=== PATIENT | male | born 1990 | race Two or more races ===

== ENCOUNTER 2023-02-16 01:42 | Emergency (ER) | payer SELFPAY ==
[2023-02-16] MEDS ORDERED: Sodium Chloride 0.9% 2.5 ML Syringe FLUSH PRN (01:45)
[2023-02-16 01:59] LABS: BASE EXCESS VENOUS -2.1 (-2.0-3.0); PH,VENOUS 7.33 (7.31-7.41)
[2023-02-16 02:00] LABS: BASOPHILS PERCENT AUTO 0.4 % (0.0-1.5); EOSINOPHILS ABSOLUTE AUTO 0.1 K/uL (0.0-0.7); HEMATOCRIT 43.6 % (38.0-50.0); LYMPHOCYTES ABSOLUTE AUTO 3.9 K/uL (0.6-2.4); LYMPHOCYTES PERCENT AUTO 40.9 % (16.0-40.0); MEAN CORPUSCULAR HEMOGLOBIN 30.4 pg (27.0-32.0); MEAN CORPUSCULAR HGB CONC 34.4 g/dL (31.0-37.0); MEAN CORPUSCULAR VOLUME 88.3 fL (80.0-98.0); MONOCYTES ABSOLUTE AUTO 0.6 K/uL (0.0-0.8); MONOCYTES PERCENT AUTO 6.7 % (0.0-15.0); NEUTROPHILS ABSOLUTE AUTO 4.9 K/uL (1.4-5.7); NRBC ABSOLUTE 0 K/uL; PLATELET COUNT,PLT 411 K/uL (150-400); RED BLOOD CELL COUNT 4.94 M/uL (4.50-5.90); WHITE BLOOD CELL COUNT,WBC 9.54 K/uL (4.0-11.0)
[2023-02-16 02:07] LABS: APPEARANCE,URINE CLEAR; BILIRUBIN,URINE NEGATIVE (NEGATIVE); COLOR,URINE YELLOW; GLUCOSE,URINE NEGATIVE (NEGATIVE); KETONES,URINE NEGATIVE (NEGATIVE); LEUKOCYTE ESTERASE,URINE NEGATIVE (NEGATIVE); NITRITE,URINE NEGATIVE (NEGATIVE); OCCULT BLOOD,URINE NEGATIVE (NEGATIVE); PH,URINE 5.5 (5.0-8.0); PROTEIN,URINE NEGATIVE (NEGATIVE); UROBILINOGEN,URINE 0.2 EU/dL (<2.0)
[2023-02-16 02:17] LABS: AMPHETAMINES SCREEN, URINE NEGATIVE (CUTOFF=500); BARBITURATE SCREEN,URINE NEGATIVE (CUTOFF=200); BENZODIAZEPINES SCREEN,URINE NEGATIVE (CUTOFF=150); BUPRENORPHINE SCREEN,URINE NEGATIVE (CUTOFF=10); METHADONE SCREEN, URINE NEGATIVE (CUTOFF=200); METHAMPHETAMINES SCREEN, URINE NEGATIVE (CUTOFF=500); OXYCODONE SCREEN,URINE NEGATIVE (CUT0FF=100); PCP SCREEN,URINE NEGATIVE (CUTOFF=25); PROPOXYPHENE SCREEN,URINE NEGATIVE (CUTOFF=300); THC SCREEN,URINE 20 NG/ML NEGATIVE (CUTOFF=50)
[2023-02-16] MEDS ORDERED: Ketamine 500 mg/10 ML MDV ONE (02:22)
[2023-02-16] MEDS ORDERED: fentaNYL 100 MCG/2 ML SDV ONE (02:25)
[2023-02-16] MEDS ORDERED: propofoL 100 ML ONE ×2 (02:25→05:38)
[2023-02-16] MEDS ORDERED: Rocuronium 100 MG/10 ML MDV IV ONE (02:34)
[2023-02-16 02:35] LABS: ACETAMINOPHEN <2.0 ug/mL; ALANINE AMINOTRANSFERASE,ALT 71 IU/L (14-63); ALBUMIN 3.9 g/dL (3.4-5.0); ALKALINE PHOSPHATASE 108 U/L (46-116); ASPARTATE AMNIOTRANSFERASE,AST 36 IU/L (15-37); BILIRUBIN TOTAL 0.2 mg/dL (0.2-1.0); BLOOD UREA NITROGEN,BUN 15 mg/dL (7.0-18.0); CARBON DIOXIDE,CO2 25.6 mmol/L (21.0-32.0); CHLORIDE,CL 105 mmol/L (98-107); CREATININE 0.9 mg/dL (0.8-1.3); ESTIMATED GFR 117 mL/min (>60); ETHANOL BLOOD MEDICAL 197 mg/dL; GLUCOSE RANDOM 115 mg/dL (74-106); MAGNESIUM 2.2 mg/dL (1.8-2.4); PHOSPHORUS 3.8 mg/dL (2.6-4.7); POTASSIUM,K 3.6 mmol/L (3.5-5.1); PROTEIN TOTAL,TP 7.7 g/dL (6.4-8.2); SALICYLATE 2.5 mg/dL (0.0-20.0); SODIUM,NA 141 mmol/L (136-148); TSH ULTRASENSITIVE 0.51 uIU/mL (0.36-3.74)
[2023-02-16] MEDS ORDERED: Midazolam 1 MG/ML 2 ML SDV ONE ×3 (02:37→05:27)
[2023-02-16] MEDS: Sodium Chloride 0.9% 10 ML Syringe FLUSH PRN ×2 (02:47→02:48)
[2023-02-16] MEDS ORDERED: fentaNYL 50 MCG/ML SDV IVPUSH ONE (02:48)
[2023-02-16] MEDS ORDERED: Midazolam 1 MG/ML 2 ML SDV IVPUSH ONE (02:49)
[2023-02-16] MEDS ORDERED: fentaNYL 100 MCG/2 ML SDV IVPUSH ONE (02:50)
[2023-02-16] MEDS ORDERED: Ketamine 500 mg/10 ML MDV IV ONE (02:51)
[2023-02-16] MEDS ORDERED: propofoL 100 ML IV SCH ×2 (03:00→05:45)
[2023-02-16] MEDS ORDERED: Propofol 200 MG/20 ML SDV IVPUSH STA ×2 (03:20→03:50)
[2023-02-16] MEDS ORDERED: Sodium Chloride 0.9% 1,000 ML IV ONE (03:30)
[2023-02-16] MEDS ORDERED: fentaNYL/Normal Saline 250 ML ONE (03:49)
[2023-02-16] MEDS ORDERED: fentaNYL/Normal Saline 2,500 MCG in Premix Bag 1 BAG IV STA (03:49)
[2023-02-16] MEDS ORDERED: Albuterol/Ipratropium 3.0-0.5 MG/3 ML Neb Soln NEB ONE (03:50)
[2023-02-16] MEDS ORDERED: fentaNYL 50 MCG/ML SDV ONE (04:03)
[2023-02-16] MEDS ORDERED: fentaNYL 50 MCG/ML SDV IVPUSH STA (04:09)
[2023-02-16] MEDS ORDERED: Midazolam 1 MG/ML 2 ML SDV IVPUSH STA ×2 (04:16→05:29)
== END 2023-02-16 05:35 ==
LOC: MW.ED 01:42
DX: F10.129 Alcohol abuse with intoxication, unspecified (principal); R40.1 Stupor; Y90.6 Blood alcohol level of 120-199 mg/100 ml
CPT/HCPCS: 31500; 36415; 43752; 51702; 70450; 71045; 80053; 80143; 80179; 80305; 80307; 81003; 82140; 82803; 82947; 83735; 84100; 84443; 84484; 85025; 85730; 87040; 93005; 96360; 96365; 96366; 96375; 96376; 99285; J1953; J2250; J2704; J3010; J3490; J7030; J7060; 93010; 99291; J7620-GY